=== PATIENT | male | born 1980 | race Caucasian/White ===

== ENCOUNTER 2020-08-12 21:52 | Emergency (ER) | payer OTHER ==
[~2020-08-12] VITALS: Ht 190.5 cm; Wt 113.4 kg
[~2020-08-12 21:52] MED LIST: AUGMENTIN 875-1 EACH PO; CIPROFLOXACIN500 MG PO; CULTURELLE1 EAC1 PO; DAILY MULTIPLE1 EACH PO; FISH OIL 1,0001 EAC2 PO; FLAGYL250 MG PO; FLAGYL500 MG PO; IBUPROFEN IB200 MG PO; IBUPROFEN600 MG PO; MAG-OXIDE400 MG PO; MAPAP325 MG PO; PERCOCET 5-3251 EACH PO; POTASSIUM CHLO20 ME1 PO; TAMIFLU75 MG PO; TYLENOL325 M1 PO; VANCOMYCIN HCL5 G1 PO; VANCOMYCIN HCL500 MG PO
--- OUTSIDE RECORDS SUMMARY | 2020-08-12 21:54 | XMS ---
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 E.Gabriel VISIT COUNT (12 MO.) 1 DANISH Jesus TOTAL 1 NOTE: Visits indicate total known visits. ED/UCC VISIT TRACKING (12 MO.) 08/12/2020 21:52 [facility] [place] TYPE: Emergency COMPLAINT: - LEFT HIP/LEG PAIN BURNING INPATIENT VISIT TRACKING (12 MO.) No inpatient visits to display in this time frame [email or web address]
[2020-08-12] MEDS ORDERED: DULOXETINE HCL60 MG PO (22:45)
[2020-08-12] MEDS ORDERED: CYCLOBENZAPRINE10 MG PO (23:24)
== END 2020-08-12 23:35 | disposition home or self-care (01) ==
LOC: ED 21:52
DX: M54.42 Lumbago with sciatica, left side (principal)
CPT/HCPCS: 99283

== ENCOUNTER 2020-08-15 12:53 | Emergency (ER) | payer OTHER ==
[~2020-08-15] VITALS: Ht 190.5 cm; Wt 113.8 kg
[~2020-08-15 12:53] MED LIST changes: +CYCLOBENZAPRINE10 MG PO; +DULOXETINE HCL60 MG PO
--- OUTSIDE RECORDS SUMMARY | 2020-08-15 12:56 | XMS ---
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 Care History Medical/Surgical 08/14/2020 [facility] - Patient is currently established with [facility]. If patient is seen in the ED during business hours. Please contact [facility] at [facility]. Care Recommendation: If this patient has had 5 or more Emergency Department visits in the last 12 months.\T\nbsp; Patient will require education on the scope and purpose of the ED as an acute care provider not a Primary Care Provider and should not be utilized for chronic conditions.\T\nbsp; These are guidelines and the provider should exercise clinical judgment when providing care. E.D. VISIT COUNT (12 MO.) 2 DANISH Jesus TOTAL 2 NOTE: Visits indicate total known visits. ED/UCC VISIT TRACKING (12 MO.) 08/15/2020 12:54 [facility] [place] TYPE: Emergency COMPLAINT: - LOW BACK PAIN, LEG PAIN 08/12/2020 21:52 [facility] [place] TYPE: Emergency COMPLAINT: - LEFT HIP/LEG PAIN BURNING DIAGNOSES: - Lumbago with sciatica, left side INPATIENT VISIT TRACKING (12 MO.) No inpatient visits to display in this time frame [email or web address]
[2020-08-15] MEDS ORDERED: PREDNISONE50 MG PO (13:14)
[2020-08-15] MEDS ORDERED: DULOXETINE HCL60 MG PO (13:15)
[2020-08-15] MEDS ORDERED: MORPHINE SULFAT15 MG PO (16:49)
[2020-08-15] MEDS ORDERED: LIDODERM1 EACH TD (16:49)
[2020-08-15] MEDS ORDERED: PREDNISONE20 MG PO (16:49)
== END 2020-08-15 17:53 | disposition home or self-care (01) ==
LOC: ED 12:53
DX: M54.42 Lumbago with sciatica, left side (principal)
CPT/HCPCS: 72110; 96372; 99283-25; J1885